=== PATIENT | male | born 1980 | race Caucasian/White ===

== ENCOUNTER → 2022-08-18 08:11 | Outpatient (CLI) | payer OTHER, SELFPAY ==
--- NOTE | ~2022-08-18 | CT_ITS ---
EXAMINATION: CT abdomen pelvis w con DATE: 08/18/2022 08:40 INDICATION: Abdominal pain TECHNIQUE: Computed tomography (CT) of the abdomen and pelvis was performed with 100 cc Omnipaque 350 intravenous contrast. The dose-length product was 1093.16 mGy-cm. Automated exposure control and ite rative reconstruction technique were employed. COMPARISON: None. FINDINGS: Lung bases are unremarkable. No significant pleural or pericardial effusion. Heart size nor mal. No significant vascular abnormality. No lymphadenopathy. There is an 8 mm low-density lesion in the posterior aspect of the right kidney, most likely benign cysts. No hydronephrosis. The liver, spl een, pancreas, adrenal glands and left kidney are unremarkable. Gallbladder is present. Colonic diver ticulosis without evidence for diverticulitis. Mild lumbar spondylosis. 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 No free air or free fluid. Nonobstructive bowel pattern. IMPRESSION: 1. No acute abdominal abnormality. Reviewed, dictated and finalized at location A. R [employer]
[2022-08-18 08:31] LABS: Estimated Glomerular Filt Rate > 60
== END ==
PROVIDERS: PCP Nurse Practitioner Family; Visit Provider Nurse Practitioner Family
DX: R10.9 Unspecified abdominal pain (principal)
CPT/HCPCS: 74177; Q9967